=== PATIENT | female | born 1975 | race Caucasian/White ===

== ENCOUNTER → 2018-06-18 | Emergency (ER) | payer OTHER ==
[~2018-06-18] VITALS: Ht 165.1 cm; Wt 59.0 kg
[~2018-06-18] MED LIST: DIAZEPAM10 MG PO; DICLOFENAC SODI50 MG PO; LYRICA 75 MG PO; LYRICA PO; LYRICA50 MG; MEDROLPACK PO; SERTRALINE HCL50 MG
== END | disposition home or self-care (01) ==
LOC: ER 17:33
DX: T63.481A Toxic effect of venom of other arthropod, accidental (unintentional), initial encounter (principal); L23.89 Allergic contact dermatitis due to other agents

== ENCOUNTER 2019-02-06 10:58 | Emergency (ER) | payer OTHER ==
[~2019-02-06] VITALS: Ht 165.1 cm; Wt 61.2 kg
[2019-02-06] MEDS ORDERED: LYRICA 75MG (11:17)
[2019-02-06] MEDS ORDERED: ADDERALL 20 MG20 MG (11:17)
== END 2019-02-06 14:36 | disposition home or self-care (01) ==
LOC: ER 10:58
DX: R51 Headache (principal)

== ENCOUNTER 2021-01-27 17:52 | Emergency (ER) | payer OTHER ==
[~2021-01-27] VITALS: Ht 165.1 cm; Wt 57.6 kg
[~2021-01-27 17:52] MED LIST changes: +ADDERALL 20 MG20 MG; +LYRICA 75MG
== END 2021-01-27 21:19 | disposition home or self-care (01) ==
LOC: ER 17:52
DX: G43.909 Migraine, unspecified, not intractable, without status migrainosus (principal)